=== PATIENT | female | born 1995 | race Two or more races ===

== ENCOUNTER 2022-05-20 08:48 | Day surgery (SDC) | payer OTHER ==
[2022-05-16 10:28] LABS: BASOPHILS # (AUTO) 0.1 X10'3 (0-0.2); BASOPHILS % (AUTO) 0.8 % (0-1); EOSINOPHILS # (AUTO) 0.1 X10'3 (0-0.9); EOSINOPHILS % (AUTO) 1.7 % (0-6); LYMPHOCYTES # (AUTO) 2.1 X10'3 (1.1-4.8); MEAN CORPUSCULAR HEMOGLOBIN 29.5 PG (27.0-31.0); MEAN CORPUSCULAR HGB CONC 33.6 g/dL (33.0-36.5); MEAN CORPUSCULAR VOLUME 87.8 FL (78-98); MEAN PLATELET VOLUME 8.4 FL (7.4-10.4); MONOCYTES # (AUTO) 0.4 X10'3 (0-0.9); MONOCYTES % (AUTO) 4.9 % (2-12); NEUTROPHILS # (AUTO) 5.8 X10'3 (1.8-7.7); NEUTROPHILS % (AUTO) 67.6 % (42-75); PRE OP HEMATOCRIT 43.1 % (35.0-45.0); PRE OP HEMOGLOBIN 14.5 g/dL (12.0-16.0); PRE OP PLATELET COUNT 288 X10'3 (140-440); RED BLOOD COUNT 4.91 X10'6 (4.20-5.60); RED CELL DISTRIBUTION WIDTH 12.8 % (11.5-14.5)
[2022-05-16 10:47] LABS: HCG SERUM QL NEGATIVE
[2022-05-20] VITALS (10 sets, daily range): BP systolic 110–130; BP diastolic 60–76
[~2022-05-20] VITALS: Ht 162.6 cm; Wt 68.0 kg
[~2022-05-20 08:48] MED LIST: ARIP5TAB14 PO; LIDOcaine 1% 30ml preserv. free vial ONE; ceFAZolin inj. 2,000 MG in dextrose 5%-water 100 ML IV ONE; famotidine 20mg tablet PO ONE; ringers solution, lacted 500 ML IV SCH
[2022-05-20] MEDS ORDERED: diazepam 5mg tablet PO ONE (11:20)
[2022-05-20] MEDS ORDERED: BUPIVAcaine/PF 2.5mg/ml (0.25%) 10ml vial ONE (12:36)
[2022-05-20] MEDS ORDERED: fentaNYL/PF 50MCG/1 ML 2ML syringe ONE (12:56)
[2022-05-20] MEDS ORDERED: MIDAZolam 1 MG/ML 5ML VIAL ONE (12:56)
[2022-05-20] MEDS ORDERED: ketorolac trometh. 30mg/ml inj. ONE (13:42)
--- NOTE | 2022-05-20 13:47 | NUR ---
RECEIVED PT FROM SURGERY IN STABLE CONDITION, VITAL SIGNS STABLE EXCEPT BRADYCARDIC, PER ANESTHESIA THIS IS NORMAL FOR THE PATIENT, ROOM AIR, PT EASILY AROUSABLE TO VOICE STIMULATION. RIGHT FINGERS ARE PINK AND WARM WITH GOOD CAPILLARY REFILL. SPLINT DRESSING IN PLACE, ARM ELEVATED ON PILLOW.
--- NOTE | 2022-05-20 14:07 | NUR ---
INITIAL ASSESSMENT AND NOTES WERE COMPLETED BY hillary AWAD RN, CHARTED UNDER Viktor BRUSH RN Addendum: 05/20/22 at 1408 by Alivia Brush RN Amended: Links added.
--- NOTE | 2022-05-20 15:17 | NUR ---
PT DC HOME WITH [employer] BY MOM. LEAVES RR VIA WHEELCHAIR. PT AMBULATORY, INDEPENDENT, NARROW STEADY GAIT. DC INSTRUCTIONS WITH VERBAL INSTRUCTION. QUESTIONS ADDRESSED. NO COMPLAINTS OF PAIN, VSS. DC TO POV WITHOUT INCIDENT. Addendum: 05/20/22 at 1536 by Francesco Mancia RN Amended: Links added.
--- NOTE | 2022-05-20 15:17 | NUR ---
PT UPDATED WITH PT EDUCATION, SPLINT TO STAY ON UNTIL FOLLOW UP APPOINTMENT. PT VERBALIZED UNDERSTANDING. Addendum: 05/20/22 at 1610 by Francesco Mancia RN Amended: Links added.
== END 2022-05-20 15:17 | disposition home or self-care (01) ==
LOC: PAS 08:48
PROVIDERS: ATTEND Orthopaedic Surgery Hand Surgery
DX: S66.310A Strain of extensor muscle, fascia and tendon of right index finger at wrist and hand level, initial encounter (principal); F31.9 Bipolar disorder, unspecified; F41.9 Anxiety disorder, unspecified; X58.XXXA Exposure to other specified factors, initial encounter; Y93.89 Activity, other specified; Y99.8 Other external cause status; Z79.899 Other long term (current) drug therapy; Z98.890 Other specified postprocedural states
CPT/HCPCS: 25310; 36415; 82948; 84703; 85025; 87811; A6222; J0690; J1885; J2250; J3010; J3490; J7030; J7060; J7120; Z7506; Z7512; A4215; A4618; A7000